=== PATIENT | female | born 1955 | race Caucasian/White ===

== ENCOUNTER → 2017-08-27 | Outpatient (CLI) | payer BC | LOC: BRMIMAGING 08:42 | PROVIDERS: ATTEND Physician Assistant Medical | DX: N63.10 Unspecified lump in the right breast, unspecified quadrant (principal); N60.11 Diffuse cystic mastopathy of right breast | CPT/HCPCS: 76641-PO ==

== ENCOUNTER → 2018-01-11 | Outpatient (CLI) | payer BC | LOC: BRMIMAGING 09:25 | PROVIDERS: ATTEND Physician Assistant Medical | DX: N63.10 Unspecified lump in the right breast, unspecified quadrant (principal) | CPT/HCPCS: 76641-PO ==

== ENCOUNTER → 2018-11-06 | Outpatient (CLI) | payer BC | LOC: BRMIMAGING 08:01 | PROVIDERS: ATTEND Family Medicine | DX: Z12.31 Encounter for screening mammogram for malignant neoplasm of breast (principal) ==

== ENCOUNTER → 2018-11-15 | Outpatient (CLI) | payer BC | LOC: BRMIMAGING 09:44 | PROVIDERS: ATTEND Family Medicine | DX: R92.0 Mammographic microcalcification found on diagnostic imaging of breast (principal) | CPT/HCPCS: 76641-PO ==